=== PATIENT | female | born 1990 | race Two or more races ===

== ENCOUNTER 2020-12-10 19:15 | Emergency (ER) | payer OTHER ==
[2020-12-10 19:34] VITALS: BP 141/59; PULSE 102; TEMP 99; BMI 21.1
[2020-12-10] MEDS ORDERED: diphenhydrAMINE HCL 25 MG CAPSULE (FP) PO ONE (19:53)
[2020-12-10] MEDS ORDERED: predniSONE 20 MG TABLET (UD) PO ONE (19:53)
[2020-12-10] MEDS ORDERED: diphenhydrAMINE HCL 50 MG CAPSULE ONE (20:02)
[2020-12-10] MEDS ORDERED: predniSONE 20 MG TABLET (UD) ONE (20:03)
[2020-12-12 12:07] LABS: SARS-CoV-2 NAA Not Detected (Not Detected)
== END 2020-12-10 20:10 | disposition home or self-care (01) ==
LOC: FER 19:15
DX: L50.9 Urticaria, unspecified (principal)
CPT/HCPCS: 99283-25; C9803; U0003; U0005

== ENCOUNTER 2020-12-12 13:34 | Emergency (ER) | payer OTHER ==
[2020-12-12] MEDS ORDERED: diphenhydrAMINE HCL 50 MG CAPSULE PO ONE (13:36)
[2020-12-12] MEDS ORDERED: predniSONE 20 MG TABLET (UD) PO ONE (13:37)
[2020-12-12] MEDS ORDERED: predniSONE 20 MG TABLET (UD) ONE (13:43)
[2020-12-12] MEDS ORDERED: diphenhydrAMINE HCL 50 MG CAPSULE ONE (13:43)
[2020-12-12 13:49] VITALS: BP 138/106; PULSE 73; TEMP 98.9; BMI 21.1
== END 2020-12-12 14:52 | disposition home or self-care (01) ==
LOC: FER 13:34
DX: R21 Rash and other nonspecific skin eruption (principal)
CPT/HCPCS: 99283-25

== ENCOUNTER 2021-07-18 06:01 | Emergency (ER) | payer OTHER ==
[2021-07-18] MEDS ORDERED: KETOROLAC TROMETHAMINE 30 MG/1 ML VIAL IVPUSH ONE (06:24)
[2021-07-18] MEDS ORDERED: SODIUM CHLORIDE 1,000 ML IV STA (06:24)
[2021-07-18 06:30] VITALS: BP 133/65; PULSE 88; TEMP 98.1; BMI 20.3
[2021-07-18] MEDS ORDERED: KETOROLAC TROMETHAMINE 30 MG/1 ML VIAL ONE (06:36)
[2021-07-18 07:20] LABS: BASO % 0.4 % (0-2.0); EOS % 0.8 % (0-4.5); HEMATOCRIT 37.1 % (32.4-45.2); HEMOGLOBIN 12.5 GM/dL (10.7-15.3); LYMPH % 44.9 % (8-40); MCHC 33.7 g/dl (32.0-36.0); MEAN CELL VOLUME 89.1 fl (80-96); MEAN PLT VOLUME 9.1 fl (7.5-11.1); MONO % 8.8 % (3.8-10.2); NEUT % 45.1 % (42.8-82.8); PLATELET COUNT 196 10^3/uL (134-434); RBC 4.16 M/mm3 (3.60-5.2); RDW 14.6 % (11.6-15.6); WHITE BLOOD COUNT 4.7 K/mm3 (4.0-10.0)
[2021-07-18 07:40] LABS: CALCIUM 8.8 mg/dL (8.5-10.1)
[2021-07-18 07:41] LABS: ALBUMIN 3.5 g/dl (3.4-5.0)
[2021-07-18 07:42] LABS: BLOOD UREA NITROGEN 10.4 mg/dL (7-18)
[2021-07-18 07:44] LABS: CREATININE 0.6 mg/dL (0.55-1.3)
[2021-07-18 07:46] LABS: BILIRUBIN,TOTAL 0.4 mg/dL (0.2-1); HCG,QUALITATIVE URINE Negative
[2021-07-18 08:31] LABS: URINE APPEARANCE CLEAR; URINE BILIRUBIN NEGATIVE (NEGATIVE); URINE COLOR YELLOW; URINE GLUCOSE (UA) NEGATIVE (NEGATIVE); URINE KETONE NEGATIVE (NEGATIVE); URINE LEUK ESTERASE NEGATIVE (NEGATIVE); URINE NITRITE NEGATIVE (NEGATIVE); URINE PROTEIN NEGATIVE (NEGATIVE); URINE UROBILINOGEN 0.2 mg/dL (0.2-1.0)
[2021-07-18] MEDS ORDERED: AMOXICILLIN 250 MG CAPSULE PO ONE (09:08)
[2021-07-18] MEDS ORDERED: AMOXICILLIN 250 MG CAPSULE ONE (09:14)
== END 2021-07-18 09:23 | disposition home or self-care (01) ==
LOC: FER 06:01
PROC: 3E033GC Introduction of Other Therapeutic Substance into Peripheral Vein, Percutaneous Approach (ICD-10-PCS; principal; 2021-07-18)
DX: M54.89 Other dorsalgia (principal)
CPT/HCPCS: 36415; 80053; 81003; 84703; 85025; 87086; 87186; 99284-25

== ENCOUNTER 2021-11-26 18:46 | Emergency (ER) | payer OTHER ==
[2021-11-26 18:54] VITALS: BP 146/86; PULSE 92; TEMP 98.8; BMI 25.7
== END 2021-11-26 20:15 | disposition home or self-care (01) ==
LOC: FER 18:46
DX: N63.0 Unspecified lump in unspecified breast (principal)
CPT/HCPCS: 99283-25